=== PATIENT | female | born 1980 | race Caucasian/White ===

== ENCOUNTER 2019-10-28 13:02 | Outpatient (CLI) | payer OTHER ==
--- NOTE | 2019-10-28 14:58 | RAD ---
RIGHT KNEE 5 VIEWS: Date: 10/28/2019 HISTORY: Knee pain. Patient noted a knot or cyst on the right knee. Area of interest was marked. FINDINGS: No signs of fracture, dislocation, or joint effusion. The area marked along the inferior pole of the patella shows no specific findings. IMPRESSION: Unremarkable right knee. POS: [facility]
== END 2019-10-28 13:03 | disposition home or self-care (01) ==
LOC: SCSRAD 13:02
PROVIDERS: ATTEND Family Medicine
DX: M25.561 Pain in right knee (principal); R22.41 Localized swelling, mass and lump, right lower limb